=== PATIENT | male | born 1945 | race Caucasian/White ===

== ENCOUNTER → 2018-01-16 11:59 | Outpatient (CLI) | payer MEDICARE, BC, SELFPAY ==
[2018-01-16 13:22] LABS: Potassium 5.5 mmol/L (3.5-5.1)
== END ==
PROVIDERS: Family Provider Nurse Practitioner; PCP Nurse Practitioner; Visit Provider Nurse Practitioner
DX: E87.5 Hyperkalemia (principal)
CPT/HCPCS: 84132

== ENCOUNTER → 2018-01-23 16:55 | Outpatient (CLI) | payer MEDICARE, BC, SELFPAY ==
--- NOTE | 2018-01-23 17:00 | CT_ITS ---
STUDY: CT ABDOMEN WITHOUT CONTRAST REASON FOR EXAM: Male, 72 years old. Abnormal adrenal nodule RADIATION DOSAGE (If Supplied By Facility): CTDIvol = ( 6.06 ) mGy, DLP = ( 186.03 ) mGycm TECHNIQUE: Transaxial images were obtained without intravenous contrast, and oral contrast. Sagittal and coronal images were reconstructed. Individualized dose optimization techniques were used for this CT. COMPARISON: None. FINDINGS: The lung bases are clear. The liver is normal with no dilated intrahepatic biliary radicles. The gallbladder is normal with no gallstones and no pericholecystic fluid collection or streakiness. The spleen, pancreas and right adrenal are normal. There is an 8.4 mm left adrenal nodule with a Hounsfield unit of -13. This is benign. The kidneys are normal with no masses, calculi or hydronephrosis. The stomach is normal. There is no bowel distention, acute appendicitis or diverticulitis. No abnormally constricting large bowel lesions. The abdominal wall is intact. There is no ascites, free intraperitoneal air or any evidence of epiploic appendagitis. The vascular structures in the retroperitoneum are normal Degenerative changes involving the facet joints at L4-5 and L5-S1 with narrowing of the lateral recesses at L4-5. There is no retrocrural, retroperitoneal or mesenteric adenopathy. There is no mesenteric mistiness CT/Abdomen without IV Contrast IMPRESSION: No acute findings in the abdomen. Specifically there is no acute appendicitis or diverticulitis. A benign 8.4 mm left adrenal nodule. Electronically Signed: Maulik Mariscal, at 3:55 EDT Tel , Service support ,
--- NOTE | 2018-01-23 17:01 | RAD_ITS ---
STUDY: X-RAY - PELVIS AND BILATERAL HIPS REASON FOR EXAM: Male, 72 years old. Hip pain TECHNIQUE: Radiological exam, hip, bilateral, with pelvis when performed; 2 views COMPARISON: None. FINDINGS: There is a non-specific bowel gas pattern. Normal visualized soft tissue structures. Degenerative lower lumbar changes. Normal bilateral iliac wings, sacroiliac joints and visualized sacrum. Normal bilateral superior and inferior pubic rami. Normal pubic symphysis. Normal bilateral ischial tuberosities. Normal visualized right femoral head. Normal right acetabulum. Normal right hip joint. Normal visualized left femoral head. Normal left acetabulum. Normal left hip joint. RAD/Hips B/L min 2 views w/ Pelvis IMPRESSION: No acute bony injury of the pelvis and bilateral hips. Electronically Signed: Israel Phillips DO at 19:11 EDT Tel [phone], Service support ,
== END ==
PROVIDERS: Family Provider Nurse Practitioner; PCP Nurse Practitioner; Visit Provider Nurse Practitioner
DX: E27.9 Disorder of adrenal gland, unspecified (principal); M25.551 Pain in right hip; M25.552 Pain in left hip
CPT/HCPCS: 73521; 74150

== ENCOUNTER → 2018-02-14 10:22 | Outpatient (CLI) | payer MEDICARE, BC, SELFPAY ==
[2018-02-14 12:43] LABS: CRP < 2.90 mg/L (0.0-3.0)
[2018-02-15 16:10] LABS: Endomysial Antibody IgA Negative (Negative)
[2018-02-16 11:49] LABS: Immunoglobulin A 145 mg/dL (61-437); t-Transglutaminase IgA <2 U/mL (0-3)
== END ==
PROVIDERS: Family Provider Nurse Practitioner; PCP Nurse Practitioner; Visit Provider Internal Medicine Gastroenterology
DX: R19.7 Diarrhea, unspecified (principal)
CPT/HCPCS: 36415; 82784; 83516; 86140; 86255

== ENCOUNTER → 2018-03-05 14:57 | Outpatient (CLI) | payer MEDICARE, BC, SELFPAY ==
--- NOTE | 2018-03-05 11:15 | COLBX_PTH ---
PATIENT: GAGAN WILKES Jr. LOC: [facility] U#:[id number] AGE/SX: 79/M ROOM: RE03/05/[address]: Dr. West Rogers MD : 1945 BED: DIS: SPEC #: [id number] RECD: 03/05/18 14:36 STATUS: AIDE CYNTHIA #: [id number] ANGELO: 03/05/18 11:[address]: West Rogers DEPT: SURGICAL PATHOLOGY RECD BY: Evan Bella ENTERED: 03/06/18 06:55 SP TYPE: COLON BX OTHR DR: Jenny Mcghee, HEAD BUCKER-C [facility] Tissues: A - Ileum, NOS B - COLON BIOPSY C - Right colon Procedures: Surgery Specimen Level IV HEADER OPERATION: Colonoscopy with biopsy and polypectomy PRE-OP DIAGNOSIS: Diarrhea TISSUE SUBMITTED: A ? Terminal ileum biopsy, rule out Crohn?s, B ? Right and left colon biopsy, rule out microscopic colitis, C ? Right colon polyp, rule out adenoma MICROSCOPIC DIAGNOSIS A. Terminal ileum, biopsy: Fragments of small intestinal mucosa, no pathologic diagnosis. B. Right and left colon, biopsy: Fragments of colonic mucosa, no pathologic diagnosis. C. Right colon polyp, polypectomy: Tubular adenoma. LARON:jamal 03/07/18 MICROSCOPIC DESCRIPTION Slides are reviewed. GROSS DESCRIPTION A - Received in fixative is one container labeled with the patient's name and designated terminal ileum. The specimen consists of multiple irregular fragments of light marie soft tissue that in aggregate measure 1 x 0.2 x 0.1 cm. The specimen is totally submitted in one cassette. B - Received in fixative is one container labeled with the patient's name and designated right and left colon. The specimen consists of multiple irregular fragments of light marie soft tissue that in aggregate measure 2.5 x 0.5 x 0.1 cm. The specimen is totally submitted in one cassette. C - Received in fixative is one container labeled with the patient's name and designated right colon polyp. The specimen consists of a piece of marie-pink polyp measuring 0.5 x 0.5 x 0.3 cm. Also present in the container is a minute fragment of marie soft tissue measuring 0.1 cm in greatest dimension. The specimen is totally submitted in one cassette. / LARON:jamal 03/06/18 TC:1 CPT: 64310 x3
== END ==
PROVIDERS: Family Provider Nurse Practitioner; PCP Nurse Practitioner; Visit Provider Internal Medicine Gastroenterology
DX: R19.7 Diarrhea, unspecified (principal)
CPT/HCPCS: 88305

== ENCOUNTER → 2019-05-01 11:42 | Outpatient (CLI) | payer MEDICARE, BC, SELFPAY ==
[2019-05-01 10:37] VITALS: BMI 24.7
--- NOTE | 2019-05-01 11:50 | RAD_ITS ---
STUDY: X-RAY - LEFT WRIST REASON FOR EXAM: Male, 73 years old. GANGLION CYST TECHNIQUE: 3 view(s) of the wrist were obtained. COMPARISON: None. FINDINGS: Normal visualized distal radius and ulna. Normal radiocarpal articulation. Normal distal radioulnar articulation. Normal carpal bones. Normal carpal articulations. Normal carpometacarpal articulation of the thumb. Normal second through fifth carpometacarpal articulations. Normal visualized metacarpal bones. The soft tissue structures are unremarkable. There is no demonstrated osseous destructive lesion. RAD/Wrist min 3 Views IMPRESSION: Normal x-ray examination of the wrist. Electronically Signed: Howard Brown MD at 18:45 EDT , Service support ,
== END ==
PROVIDERS: Family Provider Nurse Practitioner; PCP Nurse Practitioner; Referring Provider Surgery; Visit Provider Surgery
DX: M67.432 Ganglion, left wrist (principal)
CPT/HCPCS: 73110

== ENCOUNTER 2019-06-05 10:40 | Day surgery (SDC) | payer MEDICARE, BC, SELFPAY ==
[2019-05-01 10:37] VITALS: BMI 24.7
--- NOTE | 2019-06-05 10:47 | HP.PCM_ITS ---
History and Physical Date of Admission: 06/05/19 HISTORY OF PRESENT ILLNESS 73 year old man presents with an enlarging mass volar radial aspect left wrist that has increased in size over the last several months. She denies fever. She denies trauma. She denies pain in the mass. She denies numbness. Patient is left hand dominant. He presents at this time for further evaluation and treatment. He had a wrist x-ray which was normal. PAST MEDICAL HISTORY Nicotine dependence (Chronic) Atherosclerosis of coronary artery of [place] heart without angina pectoris (Chronic) History of myocardial infarction of inferoposterior wall (Chronic) Essential (primary) hypertension (Chronic) Carotid artery disease (Chronic) Hyperlipidemia (Chronic) CVA (cerebral vascular accident) (Chronic 06/2016) Gastrointestinal problem (Acute) Hearing problem (Acute) IBS (irritable bowel syndrome) (Acute) Vision problems (Acute) Other symptoms involving cardiovascular system (Inactive) Psoriasis (Inactive) PAST SURGICAL HISTORY coronary artery stent placement ALLERGIES No Known Allergies MEDICATIONS Tamsulosin HCl [Flomax] 0.4 mg PO QHS 07/29/13 [History Confirmed 03/29/19] Nitroglycerin (INPATIENT USE) [Nitrostat] 0.4 mg SUBLINGUAL Q5M PRN 09/28/15 [History Confirmed 03/29/19] Lamotrigine [Lamictal] 1 - 2 tab PO PRN PRN 07/08/16 [History Confirmed 08/17/18] diphenoxylate-atropine 2.5 mg-0.025 mg tablet 1 tab PO Q6H PRN tab 12/04/17 [History Confirmed 03/29/19] atorvastatin 80 mg tablet 80 mg PO QDAY #90 tab 02/07/18 [Rx Confirmed 03/29/19] metoprolol succinate ER 25 mg tablet,extended release 24 hr 25 mg PO DAILY #90 tab 02/02/19 [Rx Confirmed 03/29/19] clopidogrel 75 mg tablet 75 mg PO DAILY #90 tab 02/14/19 [Rx Confirmed 03/29/19] lisinopril 5 mg tablet 5 mg PO DAILY 03/29/19 [History Confirmed 03/29/19] trazodone 50 mg tablet 50 mg PO QHS 03/29/19 [History Confirmed 03/29/19] FAMILY HISTORY Other - CVA (cerebral vascular accident), Heart disease SOCIAL HISTORY Smoking Status: Heavy Smoker (>10/day) alcohol intake: former substance use type: does not use REVIEW OF SYSTEMS General - Denies fever, fatigue, and weight loss. Eyes - Has cataracts. Denies glaucoma. ENT - Denies nasal congestion and sore throat. Endocrine - Denies excessive thirst and urination. Skin - Denies suspicious lesions and skin cancer. Musculoskeletal - Denies joint pain, joint stiffness, weakness of muscles and joints, back pain, and arthritis. Neuro - Denies headaches. Cardiovascular - Denies chest pain, fatigue, and shortness of breath with exertion. Psych - Denies anxiety and depression. Respiratory - Denies chronic cough and shortness of breath. Gastrointestinal - Denies nausea, vomiting, and constipation. Has diarrhea. Hematologic - Denies abnormal bruising and bleeding. Genitourinary - Denies hematuria and urinary frequency. PHYSICAL EXAMINATION General - Alert and Oriented. HEENT - PERRL. EOMI. Throat is clear. Neck - Supple and nontender. No cervical adenopathy. Lungs - Clear to auscultation. Heart - Regular rate and rhythm. Abdomen - Soft and nondistended. Extremities - FROM. No axillary adenopathy. Radial artery pulses are palpable. Ulnar artery pulses are palpable. On the volar radial aspect left wrist is a ganglion cyst that measures 1.3 cm. It is mobile. No evidence of infection. No sensory deficits in the fingers. Javi's test is ok. Neuro - CN II-XII grossly intact. Psych - Normal mood and affect. ASSESSMENT 1. 1.3 cm ganglion cyst volar radial aspect left wrist. 2. Smoker. PLAN Recommend excision of this ganglion cyst volar radial aspect left wrist. Will dissect the stalk down usually to the scaphotrapezial joint or radiocarpal joint. A cuff of capsule will be excised to help minimize recurrence. Sometimes the cyst may adhere to the radial artery or wrap around the artery. Will try and remove the cyst sac and its contents but a small area of cyst adherent to the artery can be left behind safely. An x-ray was done to look for any bony abnormalities. It was normal. Surgery will be done on an outpatient basis under Kemar Block anesthesia. Postoperatively will have a volar wrist splint with the wrist in slight extension for a couple of weeks. Will encourage range of motion exercises of his fingers to minimize stiffness. Patient was informed of the risks and complications of the procedure including alternatives to surgery. These were discussed with the patient personally. Patient voices understanding and wishes to proceed. Some of the risks and complications were included in a form from the [employer] [employer]. Some of the risks and complications that were discussed included but were not inclusive of failure to diagnose including symptom relief, pain, infection, numbness, stiffness, loss of digit, RSD (CRPS), need for further surgery, contracture, and wound healing problems. Encouraged patient to stop smoking as it may have deleterious effects on wound healing.
[2019-06-05 11:05] VITALS: BP 125/90; PULSE 65; RESP 16; TEMP 36.2; O2SAT 100; BMI 25.0
--- NOTE | 2019-06-05 12:30 | GANG_PTH ---
PATIENT: GAGAN WILKES Jr. [place] [facility] [place][id number] AGE/SX: 73/M ROOM: RE06/05/[address]: Dr. Juancho Silva MD : 1945 BED: DIS: 06/05/2019 SPEC #: [id number] RECD: 06/06/19 14:36 STATUS: AIDE REVanessa #: [id number] ANGELO: 06/05/19 12:[address]: Juancho Silva DEPT: SURGICAL PATHOLOGY RECD BY: Evan Bella ENTERED: 06/07/19 09:42 SP TYPE: GANGLION OTHR DR: Jenny Mcghee, MANUFACTURING SUPPORT ENGINEER-C Tissues: GANGLION CYST Procedures: Surgery Specimen Level III HEADER OPERATION: Excision ganglion cyst, volar radial aspect left wrist PRE-OP DIAGNOSIS: 1.3 cm ganglion cyst volar radial aspect left wrist TISSUE SUBMITTED: Ganglion cyst volar radial aspect left wrist MICROSCOPIC DIAGNOSIS Ganglion cyst volar radial aspect left wrist, excision: A fragment of fibroadipose and fibroconnective tissue with reactive changes. See comment. LARON:jamal 06/10/19 COMMENT Clinical correlation and appropriate follow up are necessary. MICROSCOPIC DESCRIPTION Slides are reviewed. GROSS DESCRIPTION Received in fixative is one container labeled with the patient's name and designated ganglion cyst volar radial aspect left wrist. The specimen consists of an irregular piece of marie soft tissue measuring 1 x 1 x 0.2 cm. The entire specimen is submitted in one cassette. / LARON:jamal 06/07/19 TC:5 CPT: 59987
[2019-06-05] MEDS: Lactated Ringers 1,000 ML 100 ML IV (12:32)
[2019-06-05] MEDS: Cefazolin 2 GM in 0.9% Normal Saline 100 ML IV (14:33)
[2019-06-05] MEDS: Mupirocin Ointment 22gm Tube 1 APPLIC (15:24)
--- NOTE | 2019-06-05 15:51 | OP.PCM_ITS ---
Report of Operation Date of Procedure: 06/05/19 Pre-Operative Diagnosis: 1. 1.3 cm ganglion cyst volar radial aspect left wrist. 2. Smoker. Post-Operative Diagnosis: Same. Surgery/Procedure Performed:: Excision 1.3 cm ganglion cyst volar radial aspect left wrist. Description of Surgical Findings:: 73 year old man presents with an enlarging mass volar radial aspect left wrist that has increased in size over the last several months. She denies fever. She denies trauma. She denies pain in the mass. She denies numbness. Patient is left hand dominant. He had a wrist x-ray which was normal. Patient was informed of the risks and complications of the procedure including alternatives to surgery. These were discussed with the patient personally. Patient voices understanding and wishes to proceed. Some of the risks and complications were included in a form from the [place] [employer]. Encouraged patient to stop smoking as it may have deleterious effects on wound healing. Total tourniquet time - 42 minutes. The ganglion cyst was adherent to the flexor carpi radialis (FCR) tendon and extended down to the radiocarpal joint. senior service aide: None Type of Anesthesia:: Block,Roca Specimen's removed: Ganglion cyst volar radial aspect left wrist to Pathology. Drains: None. Estimated Blood Loss (mL): 5 ml. Description of Procedure: The patient was taken to the operating room. In the supine position, she was given IV sedation. A Kemar Block was administered. Her left upper extremity was prepped and draped in the usual fashion. SCDs were placed for DVT prophylaxis. Perioperative antibiotics were given intravenously. Under loupe magnification, I made a longitudinal incision proximal to the ganglion and then proceed with a curvilinear incision around the ganglion on the radial aspect. There would be possible curvilinear in the palm by thenar eminence in necessary. This was done to provide me with exposure in case I had to extend the incision either proximally, distally or radially. The incision was then infiltrated with 0.5% Marcaine for postoperative pain relief. Once the incisions were made down into the subcutaneous tissue, the ganglion cyst was seen. The palmar cutaneous branch of the median nerve was adjacent to the ganglion cyst on the ulnar aspect that was dissected free. The radial artery was adherent to the ganglion and was compressed. The radial artery was dissected and preserved and was located on the ulnar aspect of the ganglion cyst. A small cuff of cyst remained because of its adherence to the radial artery. Dissected the ganglion cyst from its stalk down to the radiocarpal joint. A small cuff of volar capsule was removed. This was done to minimize recurrence. After the ganglion cyst was removed, I pressed on the surrounding soft tissue to see if there is any other extension to the ganglion cyst and none was seen. When I excised the ganglion cyst, it was adherent to the flexor carpi radialis tendon and it was dissected free from the tendon.. After the ganglion cyst was removed, I let the tourniquet down after 42 minutes to make sure there was no arterial bleeders in the area of the radial artery and/or its branches. Very minimal bleeding was noted. Hemostasis was obtained using electrocautery. I then irrigated the wound with saline. I then was able to close the wound in multiple layers using 4-0 Vicryl interrupted sutures for deep dermis and subcutaneous tissue. The skin was approximated using 5-0 nylon simple interrupted sutures. Bactroban ointment was applied to the incision followed by Xeroform gauze, 2 x 2 gauze, and a volar plaster splint with the wrist in slight extension for postoperative pain relief. His fingers are free so she can proceed with range of motion exercises of her fingers postoperatively. This was then covered with an Javad wrap. The patient tolerated the procedure well and will be sent to the recovery room in condition. He will be sent home on antibiotics and pain medicine. He will follow up in the office in a week for a wound check as well as for discussion of the pathology report. He will have the sutures removed in a couple of weeks. He will keep his right hand elevated during the initial postoperative period. Grafts/Implants Used: None. - Complications None. - Admit VTE Documentation VTE Present on Admission: No VTE Mechan Device Prophylaxis: SCD's VTE Pharm Prophylaxis ordered?: No Code Visit Surgery Charges CPT - 56105 ICD-10 - M67.432, F17.200
[2019-06-05 15:57] VITALS: BP 125/90; BP 132/72; PULSE 61; RESP 16; TEMP 36.2; O2SAT 92
[2019-06-05 16:02] VITALS: BP 125/90; BP 131/81; PULSE 64; RESP 16; O2SAT 93
[2019-06-05 16:07] VITALS: BP 125/90; BP 140/98; PULSE 75; RESP 16; O2SAT 93
--- NOTE | 2019-06-05 16:07 | DCINST_ITS ---
You will use the following diet at home:: No restrictions Discharge Activity: May not drive while taking narcotic pain medications., May Shower - wear plastic bag over left hand when showering., - - elevate left hand. no heavy lifting. May shower in (days): 1 - wear plastic bag over left hand when showering. Lifting Restrictions: 10 lbs. Keep extremity elevated above heart level: Left Arm Call your doctor if your incision/area has: Continuous Slow Oozing, Sudden Increased Bleeding, Increased Pain/ Swelling, Increased Redness, Foul Smelling Discharge, Swelling at the incision site Call your doctor if you observe: Coldness, Increased Pain, Shortness of breath, Chest pain, Calf discomfort, Uncontrolled pain Change Dressing in (Days):: 7 - will change dressing in office. Cleanse incision/area with: - - wear plastic bag over left hand when showering. Allergies/Adverse Reactions: Allergies No Known Allergies Allergy (Verified 05/31/19 09:09) Medications to take at Discharge Tamsulosin HCl [Flomax] 0.4 mg PO QHS 07/29/13 Nitroglycerin (INPATIENT USE) [Nitrostat] 0.4 mg SUBLINGUAL Q5M PRN 09/28/15 atorvastatin 80 mg tablet 80 mg PO QDAY #90 tab 02/07/18 metoprolol succinate ER 25 mg tablet,extended release 24 hr 25 mg PO DAILY #90 tab 02/02/19 clopidogrel 75 mg tablet 75 mg PO DAILY #90 tab 02/14/19 lisinopril 5 mg tablet 5 mg PO DAILY 03/29/19 trazodone 50 mg tablet 50 mg PO QHS 03/29/19 Diphenoxylate/Atrop [Lomotil] 1 tab PO 4X/DAY PRN 05/31/19 Cefadroxil [Duricef] 500 mg PO BID #10 cap 06/05/19 Lactobacillus Acidophilus/Fos [Acidophilus Probiotic Tablet] 1 ea PO BID #10 tab 06/05/19 Oxycodone HCl/Acetaminophen [Percocet 5/325] 1 tab PO Q4H PRN PRN 7 Days #40 tab 06/05/19 The following prescriptions were given: Lactobacillus Acidophilus/Fos [Acidophilus Probiotic Tablet] 1 ea PO BID #10 tab Prescription Printed Cefadroxil [Duricef] 500 mg PO BID #10 cap Prescription Printed Oxycodone HCl/Acetaminophen [Percocet 5/325] 1 tab PO Q4H PRN PRN 7 Days #40 tab PRN Reason: Pain Score 4-5/10 Prescription Printed Primary Care Physician: Jenny Mcghee NP-C [Primary Care Provider] - Test Results: Test results from this visit will be discussed in further detail at your follow- up appointment, if applicable. Please Follow Up With: Juancho Silva MD When: one week. call [phone] for appt. Proposed Discharge Date: 06/05/19
[2019-06-05 16:12] VITALS: BP 125/90; BP 132/94; PULSE 70; RESP 16; TEMP 36.3; O2SAT 94
[2019-06-05 17:06] VITALS: BP 125/90
== END 2019-06-05 17:07 | disposition home or self-care (01) ==
LOC: SDC 10:40 → AC 10:42
PROVIDERS: Family Provider Nurse Practitioner; PCP Nurse Practitioner; Referring Provider Surgery; Visit Provider Surgery
PROC: (CPT 25111; principal; 2019-06-05 12:15)
DX: M67.432 Ganglion, left wrist (principal); F17.200 Nicotine dependence, unspecified, uncomplicated; H26.9 Unspecified cataract; I25.10 Atherosclerotic heart disease of native coronary artery without angina pectoris; I25.2 Old myocardial infarction; I10 Essential (primary) hypertension; I65.29 Occlusion and stenosis of unspecified carotid artery; E78.00 Pure hypercholesterolemia, unspecified; K58.0 Irritable bowel syndrome with diarrhea; F32.9 Major depressive disorder, single episode, unspecified; Z86.73 Personal history of transient ischemic attack (TIA), and cerebral infarction without residual deficits; Z95.5 Presence of coronary angioplasty implant and graft; Z79.02 Long term (current) use of antithrombotics/antiplatelets; Z79.899 Other long term (current) drug therapy
CPT/HCPCS: 25111; 88304; J7120; J2405

== ENCOUNTER → 2019-09-20 13:52 | Outpatient (CLI) | payer MEDICARE, BC, SELFPAY ==
[2019-08-23 08:59] VITALS: BMI 25.7
--- NOTE | 2019-09-20 14:00 | CDU_ITS ---
Reason For Study: Stroke like symptoms Rt. Velocities/BP Lt. Velocities/BP Prox CCA 119.2/27 cm/sec. Prox CCA 115.5/24.3 cm/sec. Mid CCA 102.8/18.8 cm/sec. Mid CCA 119.1/27.9 cm/sec. Dist CCA 90/18.8 cm/sec. Dist CCA 88.1/22.4 cm/sec. Prox ICA 127.9/22.6 cm/sec. Prox ICA 66.2/16.8 cm/sec. Mid ICA 90/22.5 cm/sec. Mid ICA 81.6/23.4 cm/sec. Dist ICA 82.7/22.5 cm/sec. Dist ICA 88.2/27.8 cm/sec. Rt. ICA/CCA = 1.2. Lt. ICA/CCA = 0.8. Prox ECA 198.2/13.8 cm/sec. Prox ECA 124.6/18.8 cm/sec. Rt. Vert. 54.2/13.5 cm/sec. Lt. Vert. 49.8/11.3 cm/sec. Right Extracranial There is homogeneous, smooth atherosclerotic plaque noted in the right common carotid artery. There is heterogeneous, irregular atherosclerotic plaque noted in the right internal carotid artery. There is homogeneous, smooth atherosclerotic plaque noted in the right external carotid artery. Antegrade flow is noted in the right vertebral artery. Left Extracranial There is homogeneous, smooth atherosclerotic plaque noted in the left common carotid artery. There is heterogeneous, irregular atherosclerotic plaque noted in the left internal carotid artery. There is intimal thickening but no significant atherosclerotic plaque noted in the left external carotid artery. Antegrade flow is noted in the left vertebral artery. Procedure Carotid Duplex [id number]. Exam performed in department. Interpretation Summary Mild (<50%) stenosis right extracranial internal carotid. Mild (<50%) stenosis left extracranial internal carotid. Flow within the vertebral arteries is antegrade bilaterally. Ordering Physician: Jenny Mcghee Referring Physician: Jenny Mcghee Performed By: Henrietta Barrios RVT
--- NOTE | 2019-09-20 15:30 | MRI_ITS ---
STUDY: MRI BRAIN WITHOUT CONTRAST REASON FOR EXAM: Male, 74 years old. 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 COMPARISON: None. FINDINGS: There is minimal diffuse sulcal prominence, but without ventricular enlargement. There is a focal area of T2 hyperintense signal, measuring 6 mm, involving the prefrontal gyrus of the left parietal lobe (axial FLAIR series 6, image 19; axial T2 series 5, image 19), at the cortical bowie-white matter junction. There is no associated restricted diffusion with hyperintense signal of the DWI) diffusion coefficient images indicating shine through. There is no susceptibility artifact or surrounding vasogenic edema. This is an indeterminate lesion. Follow-up examination with gadolinium augmentation is recommended for further assessment and confirmation of stability. There is an acute, deep white matter lacunar infarction of the right cerebral hemisphere, centrally located within the deep white matter tracks (diffusion weighted images series 4, image 23, ADC map series 400, image 23). No additional areas of restricted diffusion are identified. There is confluent periventricular hyperintensity consistent with periventricular leukoaraiosis. There are widely distributed white matter hyperintensities of the bilateral cerebral hemispheres consistent with chronic white matter ischemic changes. Normal bilateral basal ganglia. Normal thalami. There is no extra-axial fluid accumulation. Normal flow voids within the major intracranial circulation suggesting patency by spin echo criteria. Normal sella turcica, pituitary gland, infundibular stalk, optic chiasm and hypothalamus. Normal tectal plate and pineal gland. Normal midbrain, stacy and medulla. Normal cerebellum. Normal basal cisterns. Normal bilateral temporal bones. Normal bilateral internal auditory canals. There is an ocular lens implant the left globe. Normal right globe. The intraorbital contents otherwise are normal. Normal visualized paranasal sinuses. Normal calvarium and skull base. Normal visualized soft tissue structures. Normal visualized upper cervical spine. MRI/Brain without Contrast IMPRESSION: 1. Minimal generalized sulcal prominence. 2. Nonspecific focal area of T2 hyperintensity in the prefrontal gyrus of the left parietal lobe. This is not an acute infarction. Interval reassessment with gadolinium augmentation is recommended for further assessment and confirmation of stability. 3. Acute deep white matter lacunar infarction of the right cerebral hemisphere. 4. 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 Electronically Signed: Patrick Suazo DO at 15:59 EST Tel , Service support ,
== END ==
PROVIDERS: PCP Nurse Practitioner; Referring Provider Nurse Practitioner; Visit Provider Nurse Practitioner
DX: Z86.73 Personal history of transient ischemic attack (TIA), and cerebral infarction without residual deficits (principal)
CPT/HCPCS: 70551; 93880

== ENCOUNTER → 2019-09-23 06:42 | Outpatient (CLI) | payer MEDICARE, BC, SELFPAY ==
[2019-08-23 08:59] VITALS: BMI 25.7
--- NOTE | 2019-09-23 17:23 | STRESSREP_ITS ---
Stress Test Report Exercise myocardial perfusion stress test. 74-year-old man with a history of previous angioplasty and stenting to the right coronary artery, hypertension, hyperlipidemia. Stress protocol: Resting EKG demonstrates normal sinus rhythm with a rate of 75 bpm normal intervals are noted resting blood pressure is 142/80 mmHg. The patient exer cised according to regular Keaton protocol for a total duration of 6 minutes. Patient completed stage II of the Keaton protocol. The maximum heart rate attained was 141 bpm which was 97% of maximum predicted heart rate the maximum workload was 7 metabolic equivalents. At rest there were no ST or T wave changes noted suggest ischemia peak exercise upsloping ST changes only were noted with no meet the criteria for ischemia. No clinical angina was noted. The resting blood pressure was 142/80 with a peak blood pressure 162/82 mmHg. The test was terminated due to dyspnea. Myocardial perfusion protocol. 11.7 mCi of technetium 99m sestamibi was injected at rest. The patient exercised for a total duration of 6 minutes and at peak exercise 34.6 mCi of technetium 99m sestamibi was injected stress images were obtained stress and rest images were reconstructed and compared in the short axis vertical long horizontal long axis. Gated images were also obtained per Perfusion SPECT analysis: Review of the stress images demonstrate normal uptake of tracer noted in all areas of the myocardium the resting images similarly demonstrate normal uptake of tracer noted in all areas of the myocardium with no evidence of ischemia. No previous infarct is noted. Gated SPECT analysis: The gated ejection fraction is 70%. Conclusion: Normal exercise myocardial perfusion stress test at a moderate workload. No clinical angina noted. Preserved ejection fraction.
== END ==
PROVIDERS: PCP Nurse Practitioner; Referring Provider Internal Medicine Cardiovascular Disease; Visit Provider Internal Medicine Cardiovascular Disease
DX: Z95.5 Presence of coronary angioplasty implant and graft (principal)
CPT/HCPCS: 78452; 93017; A9500; A4216

== ENCOUNTER → 2019-09-26 06:46 | Outpatient (CLI) | payer MEDICARE, BC, SELFPAY ==
[2019-08-23 08:59] VITALS: BMI 25.7
--- NOTE | 2019-09-26 06:51 | MRI_ITS ---
We are attempting to reach an attending provider to discuss findings. An addendum with communication details will be sent when the communication is complete. STUDY: MRI BRAIN WITH CONTRAST REASON FOR EXAM: Male, 74 years old. 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 iv Dotarem 14ml was administered for the contrast portion of the examination. COMPARISON: Noncontrast examination dated September 20, 2027 and MRI dated July 08, 2016 FINDINGS: There is new 2 mm enhancement involving the right centrum ovale (axial image #18 series 3). There is a 6 mm enhancement involving left precentral gyrus (axial image 20. Series 3). Findings are new since the prior examination dated MRI/Brain WITH Contrast IMPRESSION: New bilateral small foci of enhancement. Leading differential consideration is metastatic disease. Electronically Signed: Leandro De Jesus MD at 12:57 EST Tel , Service support ,
[2019-09-26 09:36] LABS: CREATININE FINGERSTICK 1.4 mg/dL (0.70-1.30)
== END ==
PROVIDERS: PCP Nurse Practitioner; Referring Provider Nurse Practitioner; Visit Provider Nurse Practitioner
DX: R93.89 Abnormal findings on diagnostic imaging of other specified body structures (principal)
CPT/HCPCS: 70552; A9575

== ENCOUNTER → 2019-10-03 14:43 | Outpatient (CLI) | payer MEDICARE, BC, SELFPAY ==
[2019-08-23 08:59] VITALS: BMI 25.7
--- NOTE | 2019-10-03 15:02 | CT_ITS ---
STUDY: CT CHEST WITH CONTRAST REASON FOR EXAM: Male, 74 years old. Abnormal MRI brain, ? metastatic disease, neuro deficit. RADIATION DOSAGE (If Supplied By Facility): CTDIvol = ( 12.18 ) mGy, DLP = ( 990.62 ) mGycm TECHNIQUE: Transaxial imaging was performed following intravenous administration of Oral and amp; IV Readi-CAT and amp; 100mL Isovue-300. Individualized dose optimization techniques were used for this CT. COMPARISON: None. FINDINGS: Mild emphysematous changes. Mild bilateral apical scarring. No noncalcified nodule or mass. There is no demonstrated pleural abnormality. Normal heart and pericardium. Normal mediastinum. Normal hilar regions. Normal enhanced pulmonary arteries. Normal aorta arch and descending thoracic aorta. Normal osseous structures. There is no demonstrated abnormality of the visualized upper abdomen. CT/Chest WITH Contrast IMPRESSION: Mild emphysema and bilateral apical scarring but no CT evidence of bronchogenic carcinoma. Electronically Signed: Chandu Martinez MD at 11:50 EDT Tel , Service support ,
--- NOTE | 2019-10-03 15:03 | CT_ITS ---
STUDY: CT ABDOMEN AND PELVIS WITH CONTRAST REASON FOR EXAM: Male, 74 years old. Abnormal MRI brain, ? Metastatic disease, neuro deficit. RADIATION DOSAGE (If Supplied By Facility): CTDIvol = ( 12.18 ) mGy, DLP = ( 990.62 ) mGycm TECHNIQUE: Transaxial images were obtained from the dome of the diaphragm to the symphysis pubis with oral contrast. Oral and amp; IV Readi-CAT and amp; 100mL Isovue-300 was administered. Sagittal and coronal images were reconstructed. Individualized dose optimization techniques were used for this CT. COMPARISON: Comparison is made with prior examination dated January 23, 2018. FINDINGS: There is a 2.9 cm x 5.1 cm septated bulla in the anterior aspect of the right lower lobe. There are mild increased markings along the posterior aspect of the right lower lobe suggestive of scarring. The visualized portions of the heart are within normal limits. Mildly dilated central intrahepatic biliary ducts. Normal gallbladder and extrahepatic biliary system. Normal spleen. Normal pancreas. There is a small, circumscribed, smooth, low attenuation left adrenal mass, consistent with an adrenal adenoma. This measures 1.4 cm. Normal right adrenal gland. Normal right kidney. Normal left kidney. Normal visualized stomach. Normal small intestine. There are multiple colonic diverticula consistent with diverticulosis. The appendix is visualized and appears normal. There is diffuse atherosclerotic calcification of the abdominal aorta, without a demonstrated aneurysm. Normal inferior vena cava. Normal retroperitoneum. Normal urinary bladder. The prostate measures 3.5 cm x 4.9 cm. This causes indentation at the bladder base. Small bilateral inguinal hernias containing fat. There are diffuse degenerative changes of the visualized lumbar spine. CT/Abdomen/Pelvis WITH Contrast IMPRESSION: Bullous changes in the anterior aspect of the right lower lobe with mild right lower lobe scarring. Mildly dilated central intrahepatic biliary ducts. 1.4 cm adenoma in the left adrenal gland. Sigmoid diverticulosis. Electronically Signed: John Roldan, at 10:29 EDT , Service support ,
== END ==
PROVIDERS: PCP Nurse Practitioner; Referring Provider Nurse Practitioner; Visit Provider Nurse Practitioner
DX: R90.89 Other abnormal findings on diagnostic imaging of central nervous system (principal)
CPT/HCPCS: 71260; 74177; Q9967

== ENCOUNTER → 2020-11-06 08:14 | Outpatient (CLI) | payer MEDICARE, BC, SELFPAY ==
[2020-04-17 10:16] VITALS: BMI 25.3
--- NOTE | 2020-11-06 08:17 | CT_ITS ---
STUDY: LOW DOSE CT LUNG CANCER SCREENING REASON FOR EXAM: Male, 75 years old. CURRENT SMOKER. Patient smokes 1 pack per day for 61 years. RADIATION DOSAGE (If Supplied By Facility): CTDIvol = ( 3.02 ) mGy, DLP = ( 101.18 ) mGycm TECHNIQUE: No contrast was administered. Low dose technique was utilized (average mAS-38 and kVp 120). 1.25 mm axial source images with a slice interval of 1.25-mm were reconstructed in lung windows. 2.5 mm axial source images with a slice interval of 2.5-mm were reconstructed in lung windows. 5.0 mm axial source images with a slice interval of 5.0-mm were reconstructed in soft tissue windows. Nodule measured using lung windows on PACS and/or independent workstation with automated measurement of minimum and maximum diameter. Nodule measurement reported as average diameter rounded to the nearest whole number. Growth is defined as an increase ins size of greater than 1.5 mm. COMPARISON: Comparison is made with prior examination dated 10/03/2019. NODULES: No suspicious nodules are seen. Emphysema: Hyperinflation. Emphysematous changes more prominent in the upper lobes with the stable apical scarring bilaterally. Mild degree of emphysematous changes in the posterior aspect of the right upper lobe abutting the right major fissure. There is a 4.8 cm x 3.1 cm bulla in the anterior aspect of the right lower lobe. This abuts the right major fissure. This is unchanged. Endobronchial lesion: None Aorta: Atherosclerotic plaque formation of the aortic arch. Coronary arteries: Coronary artery calcification. Mediastinal nodes: Small benign-appearing mediastinal lymph nodes. Other chest and abdominal findings: CT/Low Dose CT Lung Screening IMPRESSION: Lung-RADS category 2 - Continue annual screening with LDCT in 12 months. IMPORTANT NOTES FOR USE: ACR Lung-RADS Version 1.1 Assessment Categories Release Date: 2018 Category: Coded 0-4 bases on nodule(s) with highest degree of suspicion. Negative screen is defined as categories 1 and 2; a positive screen is defined as categories 3 and 4. Category 3 and 4A nodules that are unchanged on interval CT should be coded as category 2, and individuals returned to screening in 12 months. Category 4X: Category 3 or 4 nodules with additional imaging findings that increase the suspicion of lung cancer, such as spiculation, GGN that doubles in size in 1 year, enlarged lymph notes, etc. Category Modifiers: S (significant finding unrelated to lung cancer) Electronically Signed: John Roldan MD at 10:24 EDT , Service support ,
== END ==
PROVIDERS: PCP Nurse Practitioner; Referring Provider Nurse Practitioner; Visit Provider Nurse Practitioner
DX: Z12.2 Encounter for screening for malignant neoplasm of respiratory organs (principal); Z87.891 Personal history of nicotine dependence
CPT/HCPCS: 71271

== ENCOUNTER 2020-12-08 07:30 | Outpatient (RCR) | payer MEDICARE, BC, SELFPAY ==
[2020-04-17 10:16] VITALS: BMI 25.3
--- NOTE | 2020-11-03 07:55 | HP.PTEVAL ---
Patient's Visit Information GAGAN WILKES Jr. is a 75 year old M referred to Physical Therapy by ISABELA Reis with a diagnosis of Lumbar and Hip Pain. Date of Evaluation: 11/03/20 Physical Therapist: Anabel Mcneil DPT - Visit Plan Frequency: 2x /Week Duration: 4 Weeks Plan: Lumbar Spine and Hip Pain- Focus on core strength/stabilization-flexion bias- ultrasound and. HEP Given IE: TA contractions, bridge, SKTC, Hamstring Dural Stretching - Subjective Patient reports that he has a lot of pain- his hips legs and feet. Has been going on a long time- but recently in the last couple of months more than he can handle. Went to see [employer] Jenny Guzman who sent him to therapy. They had x-rays taken of the hips, pelvis and lumbar spine. Monday he is supposed to have a chest x-ray and a CT scan. He has gone throught stuff a few years ago and was cleared. He has had pain for a long time in his back- he was able to work the pain out but not anymore. No work injuries, car accidents or falls. 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 Pain starts in the back and then travels into the hips- and then it goes down to the toes. One time the left will be worse than it changes. He has lots of cramping. Worst: 10/10 Agg: going to get up from bed- lots of cramping, bending forwards to put his pants on. Best: 2/10 Eases: walking use to help but not anymore. Describes the pain as sharp/shooting, cramping and dull and achy just depending. Does have N/T in the feet- which comes and goes but thinks its due to poor circulation/neuropathy. Work: retired. Reports that he is more sedentary and not very active. Does all of his own ADL's but does not cook due to safety issues (forgetful). He picks up food from the drive through. He is driving. No loss of bowel or bladder. He feels sometimes likes he has weakness in the legs and that they buckle under him. He has had a few falls but reports not from pain just doing stupid stuff. Sleep: disturbed- hard to get comfortable- tends to sleep during the day. Has been sleeping on a pull out couch. PMHx/Meds: see chart. - Objective Posture: FH, RS, increased kyphosis- can correct with tactile and verbal cues but is unable to maintain. Gait: antalgic- ER of both legs with more a duck walk pattern. decreased stride length and guzman. HR/TR: able with UE A but reports discomfort in the hamstrings. SLS: weight shift but unable to SLS. ROM: Lumbar: flexion: to toes but does bend knees due to hamstring length- no pain, Extn: neutral with pain, SB/Rot: decreased by 25% with discomfort but no painful. Hip: WFL in all planes- reports cramping with tesing in gastroc/hamstring area. Knee/Ankle: WFL. Strength: Core: poor, Hip: 4-/5 with pain in all directions, Knee/Ankle: 5/5. Sensation: WFL. Flex: HS: severe, Gastroc: moderate. Palpation: tender along great troch bilateral and into the gluts- significant glut atrophy bilateral. Special Test: Slump: positive, SLR: positive, Dural Signs: positive. SKTC: decreased symptoms - Goals Goal 1:: Patient will be I with HEP and progression Goal Time Frame: 4-6 Weeks Goal 2:: Patient will maintain proper posture t/o tx session to demo increased core s/s Goal Time Frame: 4-6 Weeks Goal 3:: Patient will report no more than 3/10 pain for 1 week Goal Time Frame: 4-6 Weeks Goal 4:: Patient will ambulate >300 feet with a normalized gait pattern Goal Time Frame: 4-6 Weeks - Rehabilitation Potential Physical Therapy Diagnosis: Patient presents with hypomobility- he has decreased core strength/stabilization, LE strength, flex and muscular endurance leading to poor posture and increased pain with ADL's. Rehabilitation Potential: Good - Anticipated Interventions Patient/Client Instruction: Educate patient on: Benefits of Fitness Program Therapeutic Exercise to Include: Strength training, Endurance training, Body mechanics, Postural training, Flexibilty training, Gait and locomotor training, Neuromotor development, Passive ROM, Active ROM, Dynamic Lumbar Stabilization, Scapular Strength/Stabilization For the Purpose of:: To improve muscle performance and motor function TENS: Yes Cryotherapy (ice pack, ice massage): Yes Thermo therapy (hot pack): Yes Ultrasound (thermal/non thermal): Yes Thank you for the opportunity to evaluate your patient. For Medicare and Medicare HMO plans, please review the plan of care and approve it. It will need to be FAXED BACK to us at [phone] for Medicare purposes. For Medicare only, by signing this I certify the plan of care. Please let me know if there are questions or concerns regarding this plan of care. Physician Signature: Date:
--- NOTE | 2020-12-03 07:27 | HP.PTREVAL_ITS ---
Jenny Mcghee, HEAD OPERATOR-C, It has been my pleasure to treat GAGAN WILKES Jr. over the last 9 visits for Lumbar and Hip Pain. Please see the progress note below for an update on the physical therapy plan of care! Subjective: Patient reports that he is not really very good- he has cramping and pain in both legs. The pain comes and goes but is there most of the time. One day when he left therapy he was hurting but later in the evening he felt better. When he went to bed he was okay, but when he woke up he was miserable. Goes back to see his primary care physician tomorrow. He reports that he is non compliant with therapy at home due to his lack of space. Objective/Function: Posture: FH, RS, increased kyphosis- can correct with tactile and verbal cues but is unable to maintain. Gait: antalgic- decreased stride length and guzman. HR/TR: able with UE A. SLS: weight shift but unable to SLS. ROM: Lumbar: flexion: to toes but does bend knees due to hamstring length- no pain, Extn: neutral with pain, SB/Rot: decreased by 25% with discomfort but no painful. Hip: WFL in all planes- reports cramping with tesing in gastroc/hamstring area. Knee/Ankle: WFL. Strength: Core: fair minus, Hip: 4/5 with pain in all directions, Knee/Ankle: 5/5. Sensation: WFL. Flex: HS: severe, Gastroc: moderate. Palpation: tender along great troch bilateral and into the gluts- significant glut atrophy bilateral. Special Test: Slump: positive, SLR: positive, Dural Signs: positive. SKTC: decreased symptoms Plan Plan: 12/03/2020: Continue 1x a week for 2 weeks for HEP progression. Lumbar Spine and Hip Pain- Focus on core strength/stabilization-flexion bias- ultrasound and MHP for modality of choice Goals Goal 1:: Patient will be I with HEP and progression Goal Time Frame: 4-6 Weeks Goal Progress: Progressing Goal 2:: Patient will maintain proper posture t/o tx session to demo increased core s/s Goal Time Frame: 4-6 Weeks Goal Progress: Not Progressing Goal 3:: Patient will report no more than 3/10 pain for 1 week Goal Time Frame: 4-6 Weeks Goal Progress: Not Progressing Goal 4:: Patient will ambulate >300 feet with a normalized gait pattern Goal Time Frame: 4-6 Weeks Anticipated Interventions Patient/Client Instruction: Educate patient on: Benefits of Fitness Program Therapeutic Exercise to Include: Strength training, Endurance training, Body mechanics, Postural training, Flexibilty training, Gait and locomotor training, Neuromotor development, Passive ROM, Active ROM, Dynamic Lumbar Stabilization, Scapular Strength/Stabilization For the Purpose of:: To improve muscle performance and motor function TENS: Yes Cryotherapy (ice pack, ice massage): Yes Thermo therapy (hot pack): Yes Ultrasound (thermal/non thermal): Yes Please do not hesitate to contact me at [phone] by phone or Fax: if you have questions or concerns regarding this new plan of care! Sincerely, Anabel Mcneil DPT
--- NOTE | 2020-12-03 14:15 | HP.PTDCSUM_ITS ---
It has been my pleasure to treat GAGAN WILKES . referred by ISABELA Reis, with the diagnosis of Lumbar and Hip Pain for a total of 10 visit(s). Discharge Date: Please see the following information for a summary of their discharge status. Subjective: Patient reports that his knee is normal. He does not feel like its as explosive as it was before. He could dunk easy prior but he is now just clearing the rim of the hoop. Running and jumping he feels fine. There is nothing he isn't doing. 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 No pain in the knee. Flexibility and ROM is good and equal to the other side. Feels that he is 97.5% back to normal. % Improvement: 97 Objective/Function: ROM: 0-130 degrees. 6 Girth: Left: 57.5 Right: 58.5. Strength: Left extn: 100.8 right extn: 102.8 Right flexion:61.0 left flexion: 67.9. Single Leg Jump: Right: 61 inches Left: 57.5 inches. Vertical: To.6/22.79 Left: 10.6/12.6/10.3 Right: 11.82/11.35/11.59 Goal 1:: Patient will be I with HEP and progression Goal Progress: Goal Met Goal 2:: Patient will maintain proper posture t/o tx session to demo increased core s/s Goal Progress: Goal Met Goal 3:: Patient will report no more than 3/10 pain for 1 week Goal Progress: Goal Met Goal 4:: Patient will ambulate >300 feet with a normalized gait pattern Goal Progress: Goal Met Plan: 12/03/2020: Return to MD for clearance for sport- continue HEP and workout in gym. 12/03/2020: Continue 1x a week for 2 weeks for HEP progression. Lumbar Spine and Hip Pain- Focus on core strength/stabilization-flexion bias- ult rasound and MHP for modality of choice If there are questions or concerns regarding this patient's physical therapy, please feel free to call me at [phone]. Thank you for the referral of this patient. Sincerely, SKYLAR AppiahT
== END 2020-12-08 19:00 | disposition home or self-care (01) ==
LOC: PT 07:30
PROVIDERS: PCP Nurse Practitioner; Referring Provider Nurse Practitioner; Visit Provider Nurse Practitioner
DX: M54.9 Dorsalgia, unspecified (principal); M25.559 Pain in unspecified hip
CPT/HCPCS: 97110; 97162; 97164

== ENCOUNTER → 2021-04-27 10:58 | Outpatient (CLI) | payer OTHER, SELFPAY ==
--- NOTE | 2021-04-27 11:01 | ECHOD_ITS ---
Reason For Study: ISCHEMIC HEART DISEASE Procedure This was a 2D Doppler, Color Flow transthoracic echocardiogram. The exam was of adequate technical quality. Exam performed in department. Left Ventricle Normal LV size. Left ventricular systolic function is normal. The estimated ejection fraction is 65 %. No evidence for diastolic dysfunction. No regional wall motion abnormalities noted. Right Ventricle Normal RV size. Normal systolic function. Atria Normal left atrium. Normal right atrium. No doppler evidence for ASD. Mitral Valve There is mild mitral annular calcification. Extension of the mitral annular calcification onto the base of the posterior mitral valve leaflet. Trivial mitral valve insufficiency. Tricuspid Valve Normal tricuspid valve. Mild tricuspid valve insufficiency. Right ventricular systolic pressure estimated to be 30 mmHg. Aortic Valve Trisinus/trileaflet aortic valve. Mild diffuse aortic valve thickening. Severe focal aortic valve calcification. Mild aortic stenosis. Pulmonic Valve The pulmonic valve is not well visualized. Mild (1+) pulmonic valve insufficiency. Great Vessels Normal sized aortic root. Calcified aortic root. Pericardium/Pleural No pericardial effusion. MMode/2D Measurements & Calculations LVIDd: 4.5 cm IVSd: 0.97 cm LVOT diam: 2.2 cm LVIDs: 2.8 cm LVPWd: 1.00 cm LVOT area: 3.7 cm2 RVDd: 2.7 cm FS: 37.2 % Ao root diam: 3.1 cm LAV(MOD-bp): 47.8 ml LA A4 area: 17.4 cm2 LAV(MOD-bp) Indexed: 25.7 ml/m2 LAV(MOD-sp2): 51.3 ml LAV(MOD-sp4): 45.8 ml LA dimension(2D): 3.0 cm RA A4 area: 14.6 cm2 Time Measurements MV dec time: 0.24 sec Doppler Measurements & Calculations MV E max facundo: 86.4 cm/sec Lat Peak E' Facundo: 6.5 cm/sec Med Peak E' Facundo: 6.5 cm/sec MV A max facundo: 108.2 cm/sec E/E' lat: 13.4 E/E' med: 13.4 MV E/A: 0.80 Ao V2 max: 209.1 cm/sec LV V1 max: 101.2 cm/sec SV(LVOT): 90.1 ml Ao max P.5 mmHg LV V1 max P.1 mmHg Ao V2 mean: 148.4 cm/sec LV V1 mean P.3 mmHg Ao mean P.5 mmHg LV V1 mean: 72.8 cm/sec Ao V2 VTI: 49.0 cm LV V1 VTI: 24.3 cm GISSELLE(I,D): 1.8 cm2 GISSELLE(V,D): 1.8 cm2 PA V2 max: 77.5 cm/sec TR max facundo: 258.2 cm/sec TR max P.7 mmHg ECHO/Echo Complete Interpretation Summary Left ventricular systolic function is normal. The estimated ejection fraction is 65 %. There is mild mitral annular calcification. Extension of the mitral annular calcification onto the base of the posterior mi tral valve leaflet. Trivial mitral valve insufficiency. Mild tricuspid valve insufficiency. Mild aortic stenosis. Mild (1+) pulmonic valve insufficiency. Calcified aortic root. Right ventricular systolic pressure estimated to be 30 mmHg. No evidence for diastolic dysfunction. Ordering Physician: SHAY JOE Referring Physician: Jenny Mcghee Performed By: Mayra Ruiz RDCS, RVT
== END ==
PROVIDERS: PCP Nurse Practitioner
DX: I25.9 Chronic ischemic heart disease, unspecified (principal); I08.3 Combined rheumatic disorders of mitral, aortic and tricuspid valves
CPT/HCPCS: 93306

== ENCOUNTER 2021-09-27 10:17 | Outpatient (CLI) | payer MEDICARE, BC, SELFPAY ==
[2021-09-27 10:49] LABS: Potassium 4.6 mmol/L (3.5-5.1)
== END 2021-09-27 23:59 | disposition home or self-care (01) ==
LOC: LABSPEC 10:23
PROVIDERS: Referring Provider Nurse Practitioner
DX: E87.5 Hyperkalemia (principal)
CPT/HCPCS: 84132

== ENCOUNTER → 2022-08-10 | Outpatient (CLI) | payer MEDICARE, BC, SELFPAY ==
[2022-08-10 14:21] LABS: Absolute Lymphocyte Count 0.84 X10^3/uL (0.83-4.51); Absolute Neutrophil Count 3.7 X10^3/uL (2.0-7.7); Basophil# 0.04 X10^3/uL; Basophil% 0.7 % (0-1); Eosinophil# 0.17 X10^3/uL; Eosinophils% 3.1 % (0-5); Hemoglobin 14.1 g/dL (13.0-16.5); Lymphocyte # 0.84 X10^3/ul (0.83-4.51); Lymphocyte % 15.4 % (19-41); Mean Corpuscular Hgb 31.5 pg (27.0-32.0); Mean Corpuscular Volume 98.2 fL (80-94); Mean Platelet Vol. 10.5 fl (6.2-12.0); Monocyte# 0.63 X10^3/uL; Monocyte% 11.5 % (0-10); NRBC Flagged by Analyzer 0 % (0-5); Neutrophil # 3.74 X10^3/uL (2.7-7.7); Neutrophil % 68.6 % (47-70); Platelet Count 253 K/mm3 (150-450); RBC Distribution Width CV 12.8 % (11.6-14.6); Red Blood Count 4.48 M/mm3 (4.6-6.2); White Blood Count 5.5 K/mm3 (4.4-11.0)
[2022-08-10 14:55] LABS: ALB/GLOB Ratio 0.7 RATIO (0.9-2.4); AST(SGOT) 23 U/L (15-37); Alanine Aminotransfer ALT/SGPT 30 U/L (16-61); Albumin, Serum 3.5 g/dL (3.2-5.0); Alkaline Phosphatase 66 U/L (45-117); Anion Gap 6 (5-15); BUN 21 mg/dL (7-18); BUN/Creat Ratio 18.6 RATIO (10-20); CRP < 2.90 mg/L (0.0-3.0); Calcium,Total 9.1 mg/dL (8.5-10.1); Chloride 99 mmol/L (98-107); Creatinine, Serum 1.13 mg/dL (0.70-1.30); EST Glomerular Filtration Rate 67 mL/min (>60); Est Glom Filt Rate - Afr Amer 81 mL/min (>60); Globulin 4.7 g/dL (2.2-4.2); Glucose 139 mg/dL (74-106); Potassium 4.4 mmol/L (3.5-5.1); Protein, Total 8.2 g/dL (6.4-8.2); Sodium Level 131 mmol/L (136-145); Uric Acid 5.5 mg/dL (3.5-7.2)
[2022-08-12 20:29] LABS: ANTINUCLEAR ANTIBODIES DIRECT Negative (Negative)
== END | disposition home or self-care (01) ==
LOC: LAB 13:29
PROVIDERS: PCP Nurse Practitioner Family; Visit Provider Podiatrist
DX: M79.672 Pain in left foot (principal)
CPT/HCPCS: 36415; 80053; 84550; 85025; 86038; 86140; 86225; 86235

== ENCOUNTER → 2022-09-12 | Outpatient (CLI) | payer MEDICARE, BC, SELFPAY ==
--- NOTE | 2022-09-12 09:13 | ART_ITS ---
Reason For Study: PVD Procedure A bilateral lower extremity continuous wave Doppler with analog waveform analysis,segmental pressures,and ankle brachial indexes with exercise. Left Segmental Pressures Left brachial= 159mmHg. Left posterior tibial artery = 193mmHg. Left dorsalis pedis artery = 182mmHg. Left digit = 150 mmHg. The left posterior tibial artery waveforms are triphasic. The left dorsalis pedis waveforms are triphasic. Right Segmental Pressures Right brachial= 165mmHg. Right posterior tibial artery = 175mmHg. Right dorsalis pedis artery = 189mmHg. Right digit = 142 mmHg. The right posterior tibial artery waveforms are triphasic. The right dorsalis pedis waveforms are triphasic. Indices The right ankle brachial index by the posterior tibial artery is 1.06. The right ankle brachial index by the dorsalis pedis is 1.15. The right digital-brachial index is 0.86. The right ankle brachial index by the dorsalis pedis post exercise is 1.17. The left ankle brachial index by the posterior tibial artery is 1.17. The left ankle brachial index by the dorsalis pedis is 1.10. The left digital-brachial index is 0.91. The left posterior tibial artery index post exercise is 1.18. VL/Lower Ext Art Exam w/ Exercise Interpretation Summary Triphasic Doppler waveforms are noted at ankle level bilaterally. Pulse-volume recordings appear satisfactory at all levels bilaterally. Resting ankle-brachial indices are norm al bilaterally. Digital-brachial indices are normal bilaterally. The patient ambulated on a jean marie admill for 5 minutes at 1.5 MPH and a 5% incline, following which ankle pressures and ankle-brachial indices augmented bilaterally, a normal physiological response. There is no evidence of significant arterial occlusive disease in the lower ext remities bilaterally. Ordering Physician: Jonathan Zhang Referring Physician: Tiffany Charles Performed By: Lg Monsivais RVT
== END | disposition home or self-care (01) ==
LOC: CVS 09:02
PROVIDERS: PCP Nurse Practitioner Family; Referring Provider Podiatrist; Visit Provider Podiatrist
DX: I73.9 Peripheral vascular disease, unspecified (principal)
CPT/HCPCS: 93924

== ENCOUNTER 2023-09-24 17:15 | Emergency (ER) | payer OTHER, SELFPAY ==
[2023-09-24 17:16] VITALS: BP 171/93; PULSE 80; RESP 16; TEMP 36.4; O2SAT 98; BMI 26.9
--- NOTE | 2023-09-24 17:27 | EDS_ITS ---
HPI History of Present Illness Chief Complaint: Upper Extremity Injury [facility] Medical History Atherosclerosis of coronary artery of [place] heart without angina pectoris Carotid artery disease CVA (cerebral vascular accident) (08/2019) Essential (primary) hypertension Ganglion cyst of volar aspect of left wrist Gastrointestinal problem Hearing problem History of myocardial infarction of inferoposterior wall Hyperlipidemia IBS (irritable bowel syndrome) Nicotine dependence Nonhealing surgical wound Other symptoms involving cardiovascular system Psoriasis Vision problems Home Medications tamsulosin 0.4 mg capsule 0.4 mg PO QHS 07/29/13 [History Last Taken 07/07/16] lisinopril 5 mg tablet 5 mg PO DAILY 03/29/19 [History Last Taken Unknown] trazodone 50 mg tablet 50 mg PO QHS 03/29/19 [History Last Taken Unknown] diphenoxylate-atropine 2.5 mg-0.025 mg tablet 1 tab PO 4X/DAY PRN Diarrhea 05/31/19 [History Last Taken Unknown] Lactobacillus acidophilus 500 million cell-fructooligosac 50 mg tablet 1 ea PO BID #10 tabs 06/05/19 [Rx Last Taken Unknown] nitroglycerin 0.4 mg sublingual tablet 0.4 mg sublingual Q5M PRN Chest Pain #25 tabs 06/15/20 [Rx Last Taken Unknown] cyclobenzaprine 10 mg tablet 10 mg PO HS PRN 12/17/20 [History Last Taken Unknown] atorvastatin 80 mg tablet 80 mg PO QDAY #90 tabs 01/26/21 [Rx Last Taken Unknown] clopidogrel 75 mg tablet 75 mg PO DAILY #90 tabs 01/26/21 [Rx Last Taken Unknown] metoprolol succinate 25 mg tablet,extended release 24 hr 25 mg PO DAILY #90 tabs 06/21/21 [Rx Last Taken Unknown] Allergy/AdvReac Type Severity Reaction Status Date / Time No Known Allergies Allergy Verified 04/05/22 13:51 Family History (System 04/05/22 @ 13:51 by Estella Carter) Other CVA (cerebral vascular accident) Heart disease Surgical History History of coronary artery stent placement (08/20/13) Social History (System 04/05/22 @ 13:51 by Estella Carter) Smoking Status: Current every day smoker tobacco type: cigarettes alcohol intake: former substance use type: does not use what type of physical activity do you participate in: none EXAM Physical Exam Const Vital Signs: 09/24/23 17:16 Temperature 97.5 F L Temperature Source Temporal Pulse Rate 80 Respiratory Rate 16 Blood Pressure 171/93 H Blood Pressure Mean 119 Pulse Ox 98 Oxygen Delivery Method Room Air [facility] MDM Narrative Medical decision making narrative: HISTORY OF PRESENT ILLNESS: 78 M here with right finger injury. REVIEW OF SYSTEMS: Pertinent positives: finger pain Pertinent negatives: numbness PHYSICAL EXAM: Nursing triage notes reviewed, Vital signs reviewed Constitutional: please see mdm Extremities: No edema Neuro: Intact 5/5 strength with ok sign (median), intact finger abduction (ulnar) intact wrist extension (radial n). Intact sensation in the radial, ulnar, and median nerve distributions. Skin: No rash or lesions noted MEDICAL DECISION MAKING: Chief Complaint: Syncope External records reviewed: No recent advanced imaging of the finger MDM Narrative: Patient was hemodynamically stable, afebrile, nontoxic-appearing. I considered the following differential diagnosis: [] ALL IMAGES (IF OBTAINED) HAVE BEEN PERSONALLY REVIEWED AND INTERPRETED BY MYSELF. [] The patient and/or family, caregivers express understanding. The patient and/or family, caregivers agrees with the plan. Shared decision making: I will have a discussion with the patient and or visitors regarding risk/benefits of further testing or admission. They will be made aware of of the risk/benefits inherent in this decision they will be given the opportunity to voice understanding. Total critical care time today provided was at least 0 [] minutes. This excludes separately billable procedures. Critical care time (if documented) is secondary to the patient having high probability of clinically significant/life threatening deterioration in the patient's condition which required my urgent intervention. Impression: [] Dispo: [] This note was generated with [employer] dictation software. It may contain incorrect words, spelling, and punctuation that were not noted in review of the chart prior to signing. Discharge Plan Triage Chief Complaint: Upper Extremity Injury ED Provider: Brandon Thomas Dx/Rx/DC Orders Prescriptions: No Action trazodone 50 mg tablet 50 mg PO QHS lisinopril 5 mg tablet 5 mg PO DAILY cyclobenzaprine 10 mg tablet 10 mg PO HS PRN metoprolol succinate 25 mg tablet extended release 24 hr 25 mg PO DAILY Qty: 90 3RF tamsulosin 0.4 MG capsule 0.4 mg PO QHS Patient Comments: PROSTATE diphenoxylate-atropine 1 TABLET tablet 1 tab PO 4X/DAY PRN (Reason: Diarrhea) Lactobac acidoph-fructooligos 1 EACH tablet 1 ea PO BID Qty: 10 0RF nitroglycerin 0.4 mg tablet, sublingual 0.4 mg SUBLINGUAL Q5M PRN (Reason: Chest Pain) Qty: 25 3RF clopidogrel 75 mg tablet 75 mg PO DAILY Qty: 90 3RF atorvastatin 80 mg tablet 80 mg PO QDAY Qty: 90 3RF Primary Care Provider: Tiffany Charles Referrals: Tiffany Charles NP-C [Primary Care Provider] -
--- NOTE | 2023-09-24 17:45 | EDS_ITS ---
HPI History of Present Illness HPI Narrative: 78-year-old male stumbled [place] curb [place] injuring his right hand primarily the base of his right small finger at the metacarpal phalangeal joint. Patient is right-hand dominant. Denies hitting his head or any other injuries. No recent illness. No LOC. He is not on any blood thinners. Chief Complaint: Upper Extremity Injury Informant: patient and family Occured/Mechanism Mechanism/Context: Yes injury and Yes blunt trauma Onset/Context/Timing Onset: Today Context: Sudden Onset Timing: Continuous Quality of Pain: Sharp Current Severity: Moderate Maximum Severity: Moderate Associated Symptoms Associated Symptoms: Negative for Parasthesia, Weakness or Loss of Funtion Narrative Narrative: 78-year-old male stumbled and fell over a curb injuring his right hand primarily right small finger. No head injury. No LOC. No blood thinners. No other complaints. Prior similar symptoms: No Recent Illness/Hospitalization: No PFSH PFSH Medical History Atherosclerosis of coronary artery of [place] heart without angina pectoris Carotid artery disease CVA (cerebral vascular accident) (08/2019) Essential (primary) hypertension Ganglion cyst of volar aspect of left wrist Gastrointestinal problem Hearing problem History of myocardial infarction of inferoposterior wall Hyperlipidemia IBS (irritable bowel syndrome) Nicotine dependence Nonhealing surgical wound Other symptoms involving cardiovascular system Psoriasis Vision problems Home Medications tamsulosin 0.4 mg capsule 0.4 mg PO QHS 07/29/13 [History Last Taken 07/07/16] lisinopril 5 mg tablet 5 mg PO DAILY 03/29/19 [History Last Taken Unknown] trazodone 50 mg tablet 50 mg PO QHS 03/29/19 [History Last Taken Unknown] diphenoxylate-atropine 2.5 mg-0.025 mg tablet 1 tab PO 4X/DAY PRN Diarrhea 05/31/19 [History Last Taken Unknown] Lactobacillus acidophilus 500 million cell-fructooligosac 50 mg tablet 1 ea PO BID #10 tabs 06/05/19 [Rx Last Taken Unknown] nitroglycerin 0.4 mg sublingual tablet 0.4 mg sublingual Q5M PRN Chest Pain #25 tabs 06/15/20 [Rx Last Taken Unknown] cyclobenzaprine 10 mg tablet 10 mg PO HS PRN 12/17/20 [History Last Taken Unknown] atorvastatin 80 mg tablet 80 mg PO QDAY #90 tabs 01/26/21 [Rx Last Taken Unknown] clopidogrel 75 mg tablet 75 mg PO DAILY #90 tabs 01/26/21 [Rx Last Taken Unknown] metoprolol succinate 25 mg tablet,extended release 24 hr 25 mg PO DAILY #90 tabs 06/21/21 [Rx Last Taken Unknown] Allergy/AdvReac Type Severity Reaction Status Date / Time No Known Allergies Allergy Verified 04/05/22 13:51 Family History Other CVA (cerebral vascular accident) Heart disease Surgical History History of coronary artery stent placement (08/20/13) Social History Smoking Status: Current every day smoker tobacco type: cigarettes alcohol intake: former substance use type: does not use what type of physical activity do you participate in: none ROS ROS ED ROS Narrative Denies recent illness. Review of Systems ROS Unobtainable: Denies due to encephalopathy Constitutional Constitutional ED: Denies chills or fever(s) Eyes Eyes: Denies blurry vision ENT ENT ED: Denies ear pain Cardiovascular Cardiovascular: Denies chest pain Respiratory/Chest Respiratory/Chest: Denies cough or dyspnea Gastrointestinal Gastrointestinal: Denies abdominal pain, constipation, diarrhea, melena, nausea or vomiting Genitourinary Genitourinary ED: Denies dysuria or hematuria Musculoskeletal Musculoskeletal: Denies back pain Integumentary Denies abscess Neurologic Neurologic: Denies headache(s) Psychiatric Psychiatric: Denies anxiety Endocrine Endocrinology: Denies cold intolerance Hematologic/Lymphatic Hematologic/Lymphatic: Denies easy bleeding, easy bruising or lymphadenopathy Allergic/Immunologic Allergic/Immunologic ED: Denies mouth swelling, tongue swelling or urticaria EXAM Physical Exam Narrative Exam Narrative: Well-appearing 78-year-old male vital signs stable afebrile. Accompanied by his family. Vital signs are stable afebrile. No distress. H EENT exam unremarkable atraumatic. Pupils round reactive light. Scalp nontender. No facial trauma. Neck nontender. Normal range of motion. Back and spine nontender. Lungs clear. Heart regular rhythm rate about 80 no murmur. Chest wall and ribs nontender. Abdomen soft nontender. Pelvic girdle intact. Normal flexion extension of both hips and knees. No shortening or rotation of the hips . Dorsi plantarflexion intact. Upper extremities left upper extremities nontender with normal lock installer strength. Right shoulder elbow and wrist are nontender. Right hand there is deformity of the right small finger at the MCP with bruising. Appears to be either fractured and/or dislocated. Skin is intact. Hand otherwise is neurovascular intact and nontender. Neurologically is awake and alert with no focal motor deficits. Answering questions and following commands. GCS of 15. Const Vital Signs: 09/24/23 17:16 Temperature 97.5 F L Temperature Source Temporal Pulse Rate 80 Respiratory Rate 16 Blood Pressure 171/93 H Blood Pressure Mean 119 Pulse Ox 98 Oxygen Delivery Method Room Air Positive well nourished and well developed; Negative for obese, cachectic, contractures or unkempt General Appearance ED: well developed and NAD; Negative for unkempt, cachectic, contractures, cyanotic or diaphoretic Nutritional Appearance: Negative for cachectic or obese HEENT Reports moist mucous membranes normocephalic and atraumatic; Negative for trauma or tenderness Eyes PERRL and EOMs intact bilaterally Neck full ROM and supple General: Negative for tenderness Lymph Lymphatic: Negative for other Chest Wall inspection of chest normal and palpation of chest normal Chest: Negative for other Resp normal respiratory effort and clear to auscultation bilaterally Effort and Inspection: Negative for pain with movement Auscultation: Negative for rales, rhonchi, wheezes or diminished lung sounds Cardio regular rate, regular rhythm, S1 normal heart sound, S2 normal heart sound and no murmurs Rate: Negative for bradycardia or tachycardic Rhythm: Negative for abnormal rhythm GI non-tender, non-distended and no masses Inspection: Negative for abdominal distention Auscultation: normoactive bowel sounds Palpation: soft; Negative for tender, guarding or rebound tenderness present Back/Spine no CVA tenderness General Back: Negative for CVA tenderness Cervical Spine: Negative for cervical spine tenderness Thoracic Spine / Upper Back: Negative for thoracic spinal tenderness Lumbar Spine / Lower Back: Negative for lumbar spinal tenderness Extremity normal to inspection and full ROM General Extremety ED: Negative for edema General Extremity: Negative for edema Neuro oriented x3, CN's II-XII intact bilaterally, moves all extremities and no focal motor deficits Sensorium / Orientation: alert, oriented to person, oriented to place and orien mariaelena to time; Negative for orientation impaired, lethargic or stuporous Motor Exam: strength 5/5 throughout Psych mental status grossly normal Appearance: Negative for unkempt Attitude: No agitated Mood & Affect: Negative for depressed, anxious or tearful Skin General Skin Exam: Negative for petechiae Lesions: no lesions Rashes: no rashes Trauma: no lacerations or abrasions Image ED - Upper Extremity Diagram: 1. Right small finger bruised, swollen, tender and deformed at the MCP joint. Skin intact. MDM MDM MDM Narrative Medical decision making narrative: 78-year-old male tripped and fell over a curb injuring his right hand. No other injuries. X-ray of the right hand being obtained. Repeat exam at 620 patient doing well. We went over his x-ray results. He will be discharged home. History & Record Review Discussion w/independent historian: Patient and Family Additional record(s) reviewed:: Prior inpatient record, Prior outpatient record, Prior ED visit and Prior labs Radiography Diagnostic Testing: Right hand x-ray, 3 views, interpreted by myself shows mildly displaced fracture right small finger proximal end of the proximal phalanx. This will be aluminum splinted. I did go over the x-ray with patient and family. Discharge Plan Triage Chief Complaint: Upper Extremity Injury ED Provider: Tommie Quinones Dx/Rx/DC Orders Clinical Impression: Finger fracture, right, Fall Instructions: ED Fracture, Finger, Closed Prescriptions: No Action trazodone 50 mg tablet 50 mg PO QHS lisinopril 5 mg tablet 5 mg PO DAILY cyclobenzaprine 10 mg tablet 10 mg PO HS PRN metoprolol succinate 25 mg tablet extended release 24 hr 25 mg PO DAILY Qty: 90 3RF tamsulosin 0.4 MG capsule 0.4 mg PO QHS Patient Comments: PROSTATE diphenoxylate-atropine 1 TABLET tablet 1 tab PO 4X/DAY PRN (Reason: Diarrhea) Lactobac acidoph-fructooligos 1 EACH tablet 1 ea PO BID Qty: 10 0RF nitroglycerin 0.4 mg tablet, sublingual 0.4 mg SUBLINGUAL Q5M PRN (Reason: Chest Pain) Qty: 25 3RF clopidogrel 75 mg tablet 75 mg PO DAILY Qty: 90 3RF atorvastatin 80 mg tablet 80 mg PO QDAY Qty: 90 3RF Primary Care Provider: Tiffany Charles Referrals: Jerod Pérez DO [Med Staff - Active Staff] - As soon as possible Tiffany Charles, [employer]-C [Primary Care Provider] - Activity Restrictions/Additional Instructions: You have a broken right small finger just after the knuckle. Ice and elevate to decrease pain and swelling. Tylenol for pain. Keep the splint on to immobilize it. You can take it off when you shower or bathe. But then dry the area off well and reapply the splint. Follow-up with the orthopedic doctor. But the probably only got a keep you in a splint and observe this. This would probably take minimal 4 weeks may be 8 w eeks to heal. Disposition Disposition: Home, Self Care
--- NOTE | 2023-09-24 17:55 | RAD_ITS ---
EXAM: XR RIGHT HAND COMPLETE, 3 OR MORE VIEWS CLINICAL INDICATION: trauma. Attention small finger also TECHNIQUE: Frontal, lateral and oblique views of the right hand. COMPARISON: No relevant prior studies available. FINDINGS: BONES/JOINTS: Comminuted slightly displaced fracture of the base of the fifth proximal phalanx. There is articular extension. No dislocation. No sclerotic or destructive changes observed. SOFT TISSUES: Soft tissue swelling around the hand. No radiopaque foreign body. RAD/Hand Min 3 Views IMPRESSION: Comminuted slightly displaced fracture of the base of the fifth proximal phalanx. There is articular extension. No dislocation. Electronically Signed: Carlos Faith MD at 18:20 EST ,
[2023-09-24 18:26] VITALS: BP 171/93; PULSE 80; RESP 16; TEMP 36.4; O2SAT 98
== END 2023-09-24 18:27 | disposition home or self-care (01) ==
PROVIDERS: Emergency Provider Emergency Medicine; PCP Nurse Practitioner Family; Visit Provider Emergency Medicine
DX: S62.606A Fracture of unspecified phalanx of right little finger, initial encounter for closed fracture (principal); F17.210 Nicotine dependence, cigarettes, uncomplicated; I25.2 Old myocardial infarction; W10.1XXA Fall (on)(from) sidewalk curb, initial encounter; Z95.5 Presence of coronary angioplasty implant and graft; Z86.73 Personal history of transient ischemic attack (TIA), and cerebral infarction without residual deficits
CPT/HCPCS: 73130; 99282